=== PATIENT | male | born 1990 | race Two or more races ===

== ENCOUNTER 2017-09-12 10:02 | Emergency (ER) | payer OTHER ==
--- NOTE | 2017-09-12 15:07 | EDM.PDOC ---
ED HPI GENERAL MEDICAL PROBLEM - General Chief Complaint: General Stated Complaint: NAUSEA/VOMITING Time Seen by Provider: 09/12/17 10:15 Source of Information: Reports: Patient History Limitations: Reports: No Limitations - History of Present Illness INITIAL COMMENTS - FREE TEXT/NARRATIVE: Pt is visiting here from [place]. He claims he had diarrhea for 2 days, which has stopped since yesterday. stools were watery. no blood or mucus. No abdominal pain. Fever or chills. Then he has developed some nausea and vomiting. His last episode of vomiting was 3 Am last night. Since then he has not had any diarrhea or vomiting. Pt is concerned that he has developed some infection. No fatigue or weakness. Has taken dramamine for nausea and his nausea is presently resolved. No fever , nausea or vomiting. Pt is mainly concerned and wants to make sure he is not sick. Onset Date: 09/10/17 Severity: Mild Associated Symptoms: Denies: Confusion, Chest Pain, Cough, Fever/Chills, Headaches, Malaise, Rash, Seizure, Shortness of Breath, Syncope, Weakness Treatments [employer]: Reports: Other (see below) Other Treatments [employer]: motion sickness medication at 3 am - Related Data Allergies Allergy/AdvReac Type Severity Reaction Status Date / Time No Known Allergies Allergy Verified 09/12/17 10:07 Home Meds: Home Meds FLUoxetine HCl [Prozac] 20 mg PO DAILY 09/12/17 [History] ED ROS GENERAL - Review of Systems Review Of Systems: See Below Constitutional: Denies: Fever, Chills, Malaise, Weakness HEENT: Denies: Rhinitis, Throat Pain, Throat Swelling Respiratory: Denies: Cough, Sputum Cardiovascular: Denies: Chest Pain, Lightheadedness GI/Abdominal: Denies: Abdominal Pain, Constipation, Diarrhea, Nausea, Vomiting : Denies: Dysuria, Flank Pain, Frequency Musculoskeletal: Denies: Joint Pain, Joint Swelling Skin: Denies: Bruising, Pruritis, Rash ED EXAM, GENERAL - Physical Exam Exam: See Below Exam Limited By: No Limitations General Appearance: Alert, WD/WN, No Apparent Distress Eye Exam: Bilateral Eye: EOMI, PERRL Ears: Normal External Exam, Normal Canal, Hearing Grossly Normal, Normal TMs Ear Exam: Bilateral Ear: Auricle Normal, Canal Normal, TM normal Nose: Normal Inspection, Normal Mucosa, No Blood Throat/Mouth: Normal Inspection, Normal Lips, Normal Teeth, Normal Gums, Normal Oropharynx, Normal Voice, No Airway Compromise Head: Atraumatic, Normocephalic Neck: Normal Inspection, Supple, Non-Tender, Full Range of Motion Respiratory/Chest: No Respiratory Distress, Lungs Clear, Normal Breath Sounds, No Accessory Muscle Use, Chest Non-Tender Cardiovascular: Normal Peripheral Pulses, Regular Rate, Rhythm, No Edema, No Gallop, No JVD, No Murmur, No Rub Peripheral Pulses: 2+: Radial (L), Radial (R) GI/Abdominal: Normal Bowel Sounds, Soft, Non-Tender, No Organomegaly, No Distention, No Abnormal Bruit, No Mass Extremities: Normal Inspection, Normal Range of Motion, Non-Tender, Normal Capillary Refill, No Pedal Edema Neurological: Alert, Oriented, CN II-XII Intact, Normal Cognition, Normal Gait, Normal Reflexes, No Motor/Sensory Deficits Skin Exam: Warm, Intact Course - Vital Signs Text/Narrative:: Pt's clinical exam is normal. His symptoms have resolved for more than 24 hrs. his hydration appears appropriate. Pt has asperger's syndrome and get worried about his health with any change in his habits. I have reassured patient that he might have had mild of food poisoning or viral gastroenteritis, which has resolved. as he has no symptoms presently, his workup will be normal. Advised to consume plenty of fluids and rest. If his symptoms return advised to return to emergency room. Last Recorded V/S: Last Vital Signs Temp 97.6 F 09/12/17 10:30 Pulse 81 09/12/17 10:30 Resp 16 09/12/17 10:30 BP 127/83 09/12/17 10:30 Pulse Ox 100 09/12/17 10:30 Departure - Departure Time of Disposition: 10:40 Disposition: Home, Self-Care 01 Condition: Good Clinical Impression: Gastroenteritis - Discharge Information Instructions: Viral Gastroenteritis, Adult, [id number], Clear Liquid Diet, Adult, [id number], Rehydration, Adult, [place] Diet Forms: ED Department Discharge Additional Instructions: Follow-up as needed or you can call [phone] (hospital) or the clinic [phone]. You can take the motion sickness medication every 6 hours as needed for the nausea. Start clear liquid diet advance as tolerated to a bland diet as tolerated. Do not eat meat for about 24 hours. Drink plenty of fluids and gatorade, even if you are taking a sip every 15 minutes you will stay hydrated. - Problem List & Annotations (1) Gastroenteritis SNOMED Code(s): 41614061 Code(s): K52.9 - NONINFECTIVE GASTROENTERITIS AND COLITIS, UNSPECIFIED Status: Acute - Problem List Review Problem List Initiated/Reviewed/Updated: Yes - Assessment/Plan Assessment:: Resolved gastroenteritis Plan: Pt's clinical exam is normal. His symptoms have resolved for more than 24 hrs. his hydration appears appropriate. Pt has asperger's syndrome and get worried about his health with any change in his habits. I have reassured patient that he might have had mild of food poisoning or viral gastroenteritis, which has resolved. as he has no symptoms presently, his workup will be normal. Advised to consume plenty of fluids and rest. If his symptoms return advised to return to emergency room.
== END 2017-09-12 10:40 | disposition home or self-care (01) ==
LOC: LB.ED 10:02
DX: K52.9 Noninfective gastroenteritis and colitis, unspecified (principal); Z79.899 Other long term (current) drug therapy
CPT/HCPCS: 99283